=== PATIENT | male | born 1965 | race Caucasian/White ===

== ENCOUNTER 2016-05-17 08:53 | Day surgery (SDC) | payer BC ==
[2016-05-16 11:50] VITALS: BMI 32.4
[2016-05-17] MEDS ORDERED: PROPOFOL 40 ML ONE (09:21)
[2016-05-17] MEDS ORDERED: LIDOCAINE HCL/PF 2% SDV 5ML VIAL ONE (09:21)
[2016-05-17 10:14] VITALS: TEMP 97.4
[2016-05-17 11:14] VITALS: BP 103/62; PULSE 54
--- NOTE | 2016-05-20 11:55 | PATH ---
Surgical Pathology Report Patient Name: CARLITA VELASQUEZ [facility]. Rec. #: [id number] /Age/Gender: 1965 (Age: 50) / M Account: [id number] Location: U-ENDOSCOPY Taken: 05/17/2016 Received: 05/17/2016 Reported: 05/20/2016 Physicians: Alaina Ken M.D. Specimen(s) Received A: BX ANASTOMOSIS B: BX PERIANASTOMOTIC POLYP C: BX TRANSVERSE COLON D: SPLENIC FLEXURE BIOPSY E: BX SIGMOID F: BX RECTUM Clinical History Crohn's surveillance Crohn's disease Final Diagnosis A. ANASTOMOSIS SITE, BIOPSY: COLONIC MUCOSA WITH MARKED ACTIVE CHRONIC COLITIS WITH FOCAL SOURCE ULCERATION, GRANULATION TISSUE AND MODERATE CRYPTS ALTERATION. NO EVIDENCE OF GRANULOMATA OR DYSPLASIA. B. JOSUÉ-ANASTOMOTIC POLYP, BIOPSY: POLYPOID FRAGMENTS OF COLONIC MUCOSA WITH ACTIVE AND CHRONIC INFLAMMATION CONSISTENT WITH INFLAMMATORY TYPE POLYP. NO EVIDENCE OF GRANULOMATA, DYSPLASIA/ADENOMA OR CARCINOMA. C. COLON, TRANSVERSE, BIOPSY: COLONIC MUCOSA WITH FOCALLY MINIMALLY ACTIVE MILD CHRONIC COLITIS WITH FOCAL MILD CRYPTS ALTERATION. NO EVIDENCE OF GRANULOMATA OR DYSPLASIA. D. COLON, SPLENIC FLEXURE, BIOPSY: COLONIC MUCOSA WITH FOCALLY ACTIVE MILD CHRONIC COLITIS WITH FOCAL MILD CRYPTS ALTERATION. NO EVIDENCE OF GRANULOMATA OR DYSPLASIA. E. COLON, SIGMOID, BIOPSY: COLONIC MUCOSA WITH FOCAL MILD CRYPTS ALTERATION. NO EVIDENCE OF ACTIVE INFLAMMATION, GRANULOMATA OR DYSPLASIA. F. RECTUM, BIOPSY: RECTAL MUCOSA WITH FOCAL MILD CRYPTS ALTERATION. NO EVIDENCE OF INFLAMMATION, GRANULOMATA WITH DYSPLASIA. Comment: History of Crohn's disease is noted. The histologic findings are consistent with idiopathic bowel disease. Electronically Signed Mesfin El M.D. Gross Description A. The specimen is received in formalin labeled biopsy anastomosis are multiple fragments of huntley-pink tissue ranging in size from 0.1 0.2 cm in greatest dimension. Entirely submitted in one cassettes. B. The specimen is received in formalin labeled josué-anastomotic polyp are four fragments of huntley-pink tissue each measuring 0.2 cm in greatest dimension. Entirely submitted in one cassette. C. The specimen is received in formalin labeled transverse colon biopsy ileum are five fragments of huntley-pink tissue ranging in size from 0.2 0.3 cm in greatest dimension. Entirely submitted in one cassette. D. The specimen is received in formalin labeled biopsy splenic flexure are two fragments of huntley-pink tissue 0.4 and 0.6 cm in greatest dimension. Entirely submitted in one cassette. E. The specimen is received in formalin labeled biopsy sigmoid are five fragments of huntley-pink tissue ranging in size from 0.1 0.4 cm. in greatest dimension. Entirely submitted in four cassettes. F. The specimen is received in formalin labeled biopsy rectum are four fragments of huntley-pink tissue ranging in size from 0.2 0.3 cm in greatest dimension. Entirely submitted in one cassette. (AF) ymnhsh/05/17/2016
== END 2016-05-17 11:14 | disposition home or self-care (01) ==
LOC: JASU-ENDO 08:53
PROVIDERS: ATTEND Internal Medicine Gastroenterology
PROC: 0DBK8ZX Excision of Ascending Colon, Via Natural or Artificial Opening Endoscopic, Diagnostic (ICD-10-PCS; principal; 2016-05-17 10:00)
DX: Z12.11 Encounter for screening for malignant neoplasm of colon (principal); D12.2 Benign neoplasm of ascending colon; K57.30 Diverticulosis of large intestine without perforation or abscess without bleeding; K50.90 Crohn's disease, unspecified, without complications
CPT/HCPCS: 88305-TC

== ENCOUNTER 2018-06-26 08:08 | Day surgery (SDC) | payer BC ==
[2018-06-26 07:42] VITALS: BMI 31.9
[2018-06-26 08:55] VITALS: TEMP 97.9
[2018-06-26 10:41] VITALS: BP 112/74; PULSE 58
--- NOTE | 2018-07-01 10:17 | PATH ---
Surgical Pathology Report Patient Name: CARLITA VELASQUEZ [facility]. Rec. #: [id number] /Age/Gender: 1965 (Age: 53) / M Account: [id number] Location: [facility]-ENDOSCOPY Taken: 06/26/2018 Received: 06/26/2018 Reported: 07/01/2018 Physicians: Alaina Ken M.D. Specimen(s) Received A: CECUM POLYP B: ANASTOMOSIS C: RIGHT COLON D: MID TRANSVERSE COLON E: TRANSVERSE COLON F: SIGMOID ANASTOMOSIS G: SIGMOID COLON H: RECTUM Clinical History Constipation, Crohn's disease Postoperative diagnosis: Colon polyp, Crohn's disease, anastomosis Final Diagnosis A. CECUM POLYP, BIOPSY: COLONIC MUCOSA SHOWING INCREASED CHRONIC INFLAMMATORY INFILTRATE, AND FOCAL MILD ACUTE INFLAMMATION IN THE LAMINA PROPRIA; CRYPT ARCHITECTURAL DISTORTION, WITH FOCAL SURFACE HYPERPLASTIC CHANGE PRESENT. NEGATIVE FOR DEFINITIVE GRANULOMATOUS INFLAMMATION, CRYPTITIS OR CRYPT ABSCESS. B. ANASTOMOSIS, BIOPSY: COLONIC MUCOSA WITH CHRONIC INFLAMMATION AND FOCAL MILD ACUTE INFLAMMATION IN THE LAMINA PROPRI[place], AND CRYPT ARCHITECTURAL DISTORTION. GRANULATION TISSUE WITH ACTIVE INFLAMMATION PRESENT. NEGATIVE FOR GRANULOMATOUS INFLAMMATION, CRYPTITIS OR CRYPT ABSCESS. C. RIGHT COLON, BIOPSY: COLONIC MUCOSA WITH FOCAL MILD ARCHITECTURAL DISTORTION. NEGATIVE FOR GRANULOMATOUS INFLAMMATION, CRYPTITIS OR CRYPT ABSCESS. D. MID TRANSVERSE COLON, BIOPSY: COLONIC MUCOSA WITH FOCAL REACTIVE LYMPHOID AGGREGATE. NEGATIVE FOR GRANULOMATOUS INFLAMMATION, CRYPTITIS OR CRYPT ABSCESS. E. TRANSVERSE COLON, BIOPSY: COLONIC MUCOSA WITH NO SIGNIFICANT PATHOLOGIC CHANGE. NEGATIVE FOR GRANULOMATOUS INFLAMMATION, CRYPTITIS OR CRYPT ABSCESS. F. SIGMOID ANASTOMOSIS, BIOPSY: COLONIC MUCOSA WITH FOCAL LYMPHOID AGGREGATE. NEGATIVE FOR GRANULOMATOUS INFLAMMATION, CRYPTITIS OR CRYPT ABSCESS. G. SIGMOID COLON, BIOPSY: COLONIC MUCOSA WITH FOCALLY INCREASED CHRONIC INFLAMMATORY INFILTRATE, ARCHITECTURAL DISTORTION, AND REACTIVE LYMPHOID AGGREGATES IN THE LAMINA PROPRIA. NEGATIVE FOR GRANULOMATOUS INFLAMMATION, CRYPTITIS OR CRYPT ABSCESS. H. RECTUM, BIOPSY: COLONIC MUCOSA WITH FOCAL GRANULOMATOUS INFLAMMATION IN THE LAMINA PROPRIA. AFB STAIN FOR ACID- FAST BACILLI IS NEGATIVE. GMS AND PAS STAIN FOR FUNGI ARE NEGATIVE. Comment: Negative for dysplasia in all the above specimens. Electronically Signed Iza Ledezma M.D. Gross Description A. Received in formalin, labeled "biopsy polyp of cecum" are 4 huntley, irregular portions of soft tissue ranging from 0.2-0.4 cm. in greatest dimension. The specimens are submitted in toto in one cassette. B. Received in formalin, labeled "biopsy anastomosis" are 5 huntley, irregular portions of soft tissue ranging from 0.1-0.4 cm. in greatest dimension. The specimens are submitted in toto in one cassette. C. Received in formalin, labeled "biopsy right colon" are 4 huntley, irregular portions of soft tissue ranging from 0.1-0.4 cm. in greatest dimension. The specimens are submitted in toto in one cassette. D. Received in formalin, labeled "biopsy mid transverse colon" are 4 huntley, irregular portions of soft tissue ranging from 0.3-0.7 cm. in greatest dimension. The specimens are submitted in toto in one cassette. E. Received in formalin, labeled "biopsy transverse colon" are 3 huntley, irregular portions of soft tissue ranging from 0.2-0.5 cm. in greatest dimension. The specimens are submitted in toto in one cassette. F. Received in formalin, labeled "biopsy sigmoid anastomosis" are 3 huntley, irregular portions of soft tissue ranging from 0.2-0.4 cm. in greatest dimension. The specimens are submitted in toto in one cassette. G. Received in formalin, labeled "biopsy sigmoid colon" are 6 huntley, irregular portions of soft tissue ranging from 0.3-0.5 cm. in greatest dimension. The specimens are submitted in toto in one cassette. H. Received in formalin, labeled "biopsy rectum" are 4 huntley, irregular portions of soft tissue ranging from 0.2-0.5 cm. in greatest dimension. The specimens are submitted in toto in one cassette. 06/26/2018 saudi06/26/2018
== END 2018-06-26 10:18 | disposition home or self-care (01) ==
LOC: JASU-ENDO 08:08
PROVIDERS: ATTEND Internal Medicine Gastroenterology
PROC: 0DBK8ZX Excision of Ascending Colon, Via Natural or Artificial Opening Endoscopic, Diagnostic (ICD-10-PCS; principal; 2018-06-26 08:00)
DX: Z12.11 Encounter for screening for malignant neoplasm of colon (principal); D12.2 Benign neoplasm of ascending colon; K50.90 Crohn's disease, unspecified, without complications; Z98.0 Intestinal bypass and anastomosis status

== ENCOUNTER 2020-04-21 04:47 | Day surgery (SDC) | payer BC ==
[2020-04-20 13:04] VITALS: BMI 31.9
[2020-04-21 10:42] VITALS: TEMP 97.8
[2020-04-21 12:03] VITALS: BP 107/56; PULSE 50
== END 2020-04-21 11:58 | disposition home or self-care (01) ==
LOC: JASU-ENDO 04:47
PROVIDERS: ATTEND Internal Medicine Gastroenterology
PROC: 0DBL8ZX Excision of Transverse Colon, Via Natural or Artificial Opening Endoscopic, Diagnostic (ICD-10-PCS; 2020-04-21)
PROC: 0DBN8ZX Excision of Sigmoid Colon, Via Natural or Artificial Opening Endoscopic, Diagnostic (ICD-10-PCS; 2020-04-21)
PROC: 0DBP8ZX Excision of Rectum, Via Natural or Artificial Opening Endoscopic, Diagnostic (ICD-10-PCS; 2020-04-21)
PROC: 0DBM8ZX Excision of Descending Colon, Via Natural or Artificial Opening Endoscopic, Diagnostic (ICD-10-PCS; 2020-04-21)
PROC: 0DBB8ZX Excision of Ileum, Via Natural or Artificial Opening Endoscopic, Diagnostic (ICD-10-PCS; 2020-04-21)
PROC: 0DBK8ZX Excision of Ascending Colon, Via Natural or Artificial Opening Endoscopic, Diagnostic (ICD-10-PCS; principal; 2020-04-21 10:00)
DX: K50.818 Crohn's disease of both small and large intestine with other complication (principal); K57.30 Diverticulosis of large intestine without perforation or abscess without bleeding; Z98.0 Intestinal bypass and anastomosis status
CPT/HCPCS: 88305-TC

== ENCOUNTER 2021-05-18 04:32 | Day surgery (SDC) | payer BC ==
[2021-05-10 15:20] VITALS: BMI 25.1
[2021-05-18 11:48] VITALS: TEMP 97.6
[2021-05-18 12:08] VITALS: BP 93/54; PULSE 50
== END 2021-05-18 12:43 | disposition home or self-care (01) ==
LOC: JASU-ENDO 04:32
PROVIDERS: ATTEND Internal Medicine Gastroenterology
PROC: 0DBL8ZX Excision of Transverse Colon, Via Natural or Artificial Opening Endoscopic, Diagnostic (ICD-10-PCS; 2021-05-18)
PROC: 0DBP8ZX Excision of Rectum, Via Natural or Artificial Opening Endoscopic, Diagnostic (ICD-10-PCS; 2021-05-18)
PROC: 0DBF8ZX Excision of Right Large Intestine, Via Natural or Artificial Opening Endoscopic, Diagnostic (ICD-10-PCS; 2021-05-18)
PROC: 0DBB8ZX Excision of Ileum, Via Natural or Artificial Opening Endoscopic, Diagnostic (ICD-10-PCS; 2021-05-18)
PROC: 0DBC8ZX Excision of Ileocecal Valve, Via Natural or Artificial Opening Endoscopic, Diagnostic (ICD-10-PCS; 2021-05-18)
PROC: 0DBM8ZX Excision of Descending Colon, Via Natural or Artificial Opening Endoscopic, Diagnostic (ICD-10-PCS; 2021-05-18)
PROC: 0DBB8ZX Excision of Ileum, Via Natural or Artificial Opening Endoscopic, Diagnostic (ICD-10-PCS; 2021-05-18)
PROC: 0DB98ZX Excision of Duodenum, Via Natural or Artificial Opening Endoscopic, Diagnostic (ICD-10-PCS; 2021-05-18)
PROC: 0DB68ZX Excision of Stomach, Via Natural or Artificial Opening Endoscopic, Diagnostic (ICD-10-PCS; 2021-05-18)
PROC: 0DBH8ZX Excision of Cecum, Via Natural or Artificial Opening Endoscopic, Diagnostic (ICD-10-PCS; principal; 2021-05-18 12:00)
DX: Z12.11 Encounter for screening for malignant neoplasm of colon (principal); K50.90 Crohn's disease, unspecified, without complications; K29.50 Unspecified chronic gastritis without bleeding; Z98.0 Intestinal bypass and anastomosis status
CPT/HCPCS: 88305-TC; 88342-TC

== ENCOUNTER 2022-02-05 11:32 | Emergency (ER) | payer BC ==
[2022-02-05] MEDS ORDERED: SODIUM CHLORIDE 2,000 ML IV ONE (11:40)
[2022-02-05 11:42] VITALS: TEMP 97.8; BMI 30.2
[2022-02-05 12:47] LABS: BASO % 0.3 % (0-2.0); EOS % 0.4 % (0-4.5); HEMATOCRIT 40.9 % (35.4-49); HEMOGLOBIN 14.1 GM/dL (11.7-16.9); LYMPH % 18.8 % (8-40); MCH 30.2 pg (25.7-33.7); MCHC 34.3 g/dl (32.0-35.9); MEAN CELL VOLUME 88.1 fl (80-96); MEAN PLT VOLUME 7.1 fl (7.5-11.1); MONO % 13.4 % (3.8-10.2); NEUT % 67.1 % (42.8-82.8); PLATELET COUNT 217 10^3/uL (134-434); RBC 4.65 M/mm3 (4.00-5.60); RDW 14.4 % (11.9-15.9); WHITE BLOOD COUNT 5.6 K/mm3 (4.0-10.0)
[2022-02-05 13:01] LABS: ACTIVATED PTT 33.4 SECONDS (25.2-36.5); INR 1.14 (0.83-1.09); PROTHROMBIN TIME (PATIENT) 13.1 SEC (9.7-13.0)
[2022-02-05 13:08] LABS: CALCIUM 9.4 mg/dL (8.5-10.1)
[2022-02-05 13:10] LABS: ALBUMIN 3.5 g/dl (3.4-5.0); BLOOD UREA NITROGEN 14.8 mg/dL (7-18)
[2022-02-05 13:13] LABS: CREATININE 0.9 mg/dL (0.55-1.3)
[2022-02-05 13:14] LABS: TOT PROT 7.2 g/dl (6.4-8.2)
[2022-02-05 13:15] LABS: BILIRUBIN,TOTAL 0.7 mg/dL (0.2-1)
[2022-02-05] MEDS ORDERED: POTASSIUM CHLORIDE TABS 20 MEQ TABLET.ER (FP) PO ONE ×2 (14:13→14:23)
[2022-02-05 14:41] VITALS: BP 141/92; PULSE 49; RESP 24
[2022-02-05] MEDS ORDERED: predniSONE 20 MG TABLET (UD) PO ONE (14:51)
[2022-02-05] MEDS ORDERED: predniSONE 20 MG TABLET (UD) ONE (14:54)
== END 2022-02-05 15:02 | disposition home or self-care (01) ==
LOC: JER 11:32
PROC: 3E0337Z Introduction of Electrolytic and Water Balance Substance into Peripheral Vein, Percutaneous Approach (ICD-10-PCS; principal; 2022-02-05)
DX: U07.1 COVID-19 (principal); J12.82 Pneumonia due to coronavirus disease 2019; E86.0 Dehydration
CPT/HCPCS: 0241U-QW; 36415; 71250-TC; 80053; 83615; 84484; 85025; 85610; 85730; 86140; 86480; 93005; 93010; 99285-25

== ENCOUNTER 2023-07-01 04:49 | Day surgery (SDC) | payer BC ==
[2023-06-30 10:34] VITALS: BMI 28.1
[2023-07-01 09:43] VITALS: TEMP 97.5
[2023-07-01 10:38] VITALS: BP 131/82; PULSE 70; RESP 20
== END 2023-07-01 10:39 | disposition home or self-care (01) ==
LOC: JASU-ENDO 04:49
PROVIDERS: ATTEND Internal Medicine Gastroenterology
PROC: 0DBL8ZX Excision of Transverse Colon, Via Natural or Artificial Opening Endoscopic, Diagnostic (ICD-10-PCS; 2023-07-01)
PROC: 0DBN8ZX Excision of Sigmoid Colon, Via Natural or Artificial Opening Endoscopic, Diagnostic (ICD-10-PCS; 2023-07-01)
PROC: 0DBP8ZX Excision of Rectum, Via Natural or Artificial Opening Endoscopic, Diagnostic (ICD-10-PCS; 2023-07-01)
PROC: 0DBC8ZX Excision of Ileocecal Valve, Via Natural or Artificial Opening Endoscopic, Diagnostic (ICD-10-PCS; 2023-07-01)
PROC: 0DBM8ZX Excision of Descending Colon, Via Natural or Artificial Opening Endoscopic, Diagnostic (ICD-10-PCS; 2023-07-01)
PROC: 0DBH8ZX Excision of Cecum, Via Natural or Artificial Opening Endoscopic, Diagnostic (ICD-10-PCS; 2023-07-01)
PROC: 0DB98ZX Excision of Duodenum, Via Natural or Artificial Opening Endoscopic, Diagnostic (ICD-10-PCS; 2023-07-01)
PROC: 0DB78ZX Excision of Stomach, Pylorus, Via Natural or Artificial Opening Endoscopic, Diagnostic (ICD-10-PCS; 2023-07-01)
PROC: 0DB68ZX Excision of Stomach, Via Natural or Artificial Opening Endoscopic, Diagnostic (ICD-10-PCS; 2023-07-01)
PROC: 0DB28ZX Excision of Middle Esophagus, Via Natural or Artificial Opening Endoscopic, Diagnostic (ICD-10-PCS; 2023-07-01)
PROC: 0DB38ZX Excision of Lower Esophagus, Via Natural or Artificial Opening Endoscopic, Diagnostic (ICD-10-PCS; 2023-07-01)
PROC: 0DBK8ZX Excision of Ascending Colon, Via Natural or Artificial Opening Endoscopic, Diagnostic (ICD-10-PCS; principal; 2023-07-01 09:00)
DX: Z12.11 Encounter for screening for malignant neoplasm of colon (principal); D13.0 Benign neoplasm of esophagus; K21.00 Gastro-esophageal reflux disease with esophagitis, without bleeding; K29.40 Chronic atrophic gastritis without bleeding; K26.9 Duodenal ulcer, unspecified as acute or chronic, without hemorrhage or perforation; K62.4 Stenosis of anus and rectum; K56.699 Other intestinal obstruction unspecified as to partial versus complete obstruction; K63.5 Polyp of colon; R93.3 Abnormal findings on diagnostic imaging of other parts of digestive tract; Z98.0 Intestinal bypass and anastomosis status; Z87.19 Personal history of other diseases of the digestive system; I10 Essential (primary) hypertension
CPT/HCPCS: 88305-TC; 88312-TC; 88342-TC

== ENCOUNTER 2024-09-24 06:16 | Day surgery (SDC) | payer BC ==
[2024-08-31 11:02] VITALS: BMI 29.7
[2024-09-24 12:00] VITALS: RESP 16
[2024-09-24 12:04] VITALS: BP 107/47; PULSE 58; TEMP 98.1
== END 2024-09-24 12:08 | disposition home or self-care (01) ==
LOC: JASU-ENDO 06:16
PROVIDERS: ATTEND Internal Medicine Gastroenterology
PROC: 0DBL8ZX Excision of Transverse Colon, Via Natural or Artificial Opening Endoscopic, Diagnostic (ICD-10-PCS; 2024-09-24)
PROC: 0DBN8ZX Excision of Sigmoid Colon, Via Natural or Artificial Opening Endoscopic, Diagnostic (ICD-10-PCS; 2024-09-24)
PROC: 0DBP8ZX Excision of Rectum, Via Natural or Artificial Opening Endoscopic, Diagnostic (ICD-10-PCS; 2024-09-24)
PROC: 0DBB8ZX Excision of Ileum, Via Natural or Artificial Opening Endoscopic, Diagnostic (ICD-10-PCS; 2024-09-24)
PROC: 0DBM8ZX Excision of Descending Colon, Via Natural or Artificial Opening Endoscopic, Diagnostic (ICD-10-PCS; 2024-09-24)
PROC: 0DBK8ZX Excision of Ascending Colon, Via Natural or Artificial Opening Endoscopic, Diagnostic (ICD-10-PCS; principal; 2024-09-24 11:00)
DX: Z12.11 Encounter for screening for malignant neoplasm of colon (principal); K57.30 Diverticulosis of large intestine without perforation or abscess without bleeding; K64.8 Other hemorrhoids; Z87.19 Personal history of other diseases of the digestive system
CPT/HCPCS: 88305-TC